=== PATIENT | male | born 1965 | race Caucasian/White ===

== ENCOUNTER 2018-07-15 04:06 | Emergency (ER) | payer MEDICAID ==
[~2018-07-15] VITALS: Ht 190.5 cm; Wt 136.4 kg
[2018-07-15 04:10] VITALS: BP 159/101
[2018-07-15] MEDS: HYDROcodone/acetaminophen 10/325mg tab PO ONE ×2 (04:22→04:25)
[2018-07-15] MEDS ORDERED: ketorolac trometh inj. 60 MG/2 ML VIAL IM ONE (04:25)
[2018-07-15] MEDS ORDERED: HYDR-4353 PO (04:48)
[2018-07-16] MEDS ORDERED: LISINOPRIL 10MG PO (12:24)
[2018-07-16] MEDS ORDERED: LISI10TA4 PO (17:23)
[2018-07-16] MEDS ORDERED: HYDR-3972 PO (17:23)
== END 2018-07-15 05:04 | disposition home or self-care (01) ==
LOC: ER 04:06
DX: M25.511 Pain in right shoulder (principal); I10 Essential (primary) hypertension; F12.90 Cannabis use, unspecified, uncomplicated; Z98.890 Other specified postprocedural states; Z88.8 Allergy status to other drugs, medicaments and biological substances; Z79.899 Other long term (current) drug therapy
CPT/HCPCS: 73030; 99283

== ENCOUNTER 2018-07-16 11:42 | Inpatient (IN) | payer MEDICAID | END 2018-07-18 11:10 | disposition left against medical advice (07) | LOC: ER 11:42 → PCU 3S 17:09 ==